=== PATIENT | female | born 1980 | race Caucasian/White ===

== ENCOUNTER 2016-11-10 11:17 | Emergency (ER) | payer BC ==
[~2016-11-10] VITALS: Ht 170.2 cm; Wt 65.9 kg
[~2016-11-10 11:17] MED LIST: BENTYL20 MG PO; DOXYCYCLINE 10100 MG PO; IMITREX50 MG PO; JOLIVETTE0.35 MG PO; LORTAB 5/500 501 TAB PO; MULTIPLE VITAMI1 CAP PO; MULTIPLE VITAMI1 TA5 PO; NORCO 325 MG-51 TAB; NORCO 325 MG-51 TAB PO; PRENATAL1 TA1 PO; PRILOSEC 20MG20 MG PO; PROZAC 20MG20 MG PO; PROZAC40 MG PO; ROXICODONE 55 MG/TAB PO; SEROQUEL; SEROQUEL100 MG PO; VOLTAREN 50MG T50 MG PO; VOLTAREN SR25 MG/TAB PO; ZOFRAN 4MG T4 MG/TAB; ZOVIRAX400 MG PO
[2016-11-10 11:19] VITALS: TEMP 98.3
[2016-11-10 12:25] LABS: ADJUSTED CALCIUM 9.2 mg/dL (8.4-10.2); ALANINE AMINOTRANSFERASE 18 U/L (9-52); ALBUMIN 4.5 gm/dL (3.5-5.0); ALKALINE PHOSPHATASE 55 U/L (50-136); ANION GAP 13 mmol/L (7-16); BILIRUBIN,TOTAL 0.7 mg/dL (0.0-1.0); BLOOD UREA NITROGEN 12 mg/dL (7-17); CALCIUM 9.6 mg/dL (8.4-10.2); CARBON DIOXIDE 23 mmol/L (22-30); CHLORIDE 106 mmol/L (98-107); CREATININE, serum 0.77 mg/dL (0.52-1.25); GLUCOSE 89 mg/dL (74-106); SODIUM 142 mmol/L (137-145); TOTAL PROTEIN 7.5 gm/dL (6.4-8.2)
[2016-11-10 12:26] LABS: C-REACTIVE PROTEIN < 0.5 mg/dL (0.0-0.9)
[2016-11-10 12:39] LABS: BASO # 0.1 (0.0-0.2); BASO % 0.8 % (0.0-2.0); EOS # 0.2 (0.0-0.7); EOS % 2.1 % (0-4.0); GRAN # 4.5 (1.4-6.5); GRAN % 61.3 % (42.2-75.2); HEMATOCRIT 42.6 % (37.0-47.0); HEMOGLOBIN 14.4 g/dl (12.5-16.0); LYMPH # 2.2 (1.2-3.4); LYMPH % 29.9 % (20.0-51.0); MEAN CELL VOLUME 93 fl (80.0-100.0); MEAN CORPUSCULAR HEMOGLOBIN 31 pg (27.0-31.0); MEAN CORPUSCULAR HGB CONC 34 g/dl (33.0-37.0); MONO # 0.4 (0.1-0.6); MONO % 5.6 % (1.7-9.3); PLATELET COUNT 355 K/mm3 (130-400); RED BLOOD COUNT 4.59 M/mm3 (4.10-5.30); REDCELL DISTRIBUTION WIDTH-CV 11.9 % (11.5-14.5); WHITE BLOOD COUNT 7.3 K/mm3 (4.8-10.8)
[2016-11-10] MEDS ORDERED: NORCO 325 MG-51 TAB PO (13:32)
[2016-11-10] MEDS ORDERED: ZOFRAN 4MG T4 MG/TAB PO (13:32)
[2016-11-10 13:43] VITALS: BP 131/87; PULSE 66
== END 2016-11-10 13:44 | disposition home or self-care (01) ==
LOC: COL.ER 11:17
PROVIDERS: Emergency Medicine
DX: G43.809 Other migraine, not intractable, without status migrainosus (principal); K21.9 Gastro-esophageal reflux disease without esophagitis; R20.0 Anesthesia of skin; R20.2 Paresthesia of skin
CPT/HCPCS: J1170; J1885; J2405; J7030

== ENCOUNTER 2017-02-17 13:59 | Day surgery (SDC) | payer BC ==
[~2017-02-17] VITALS: Ht 170.2 cm; Wt 64.7 kg
[~2017-02-17 13:59] MED LIST changes: +ZOFRAN 4MG T4 MG/TAB PO
[2017-02-17 14:18] VITALS: BP 127/95; PULSE 79; TEMP 98.5
[2017-02-17] MEDS ORDERED: CYMBALTA 60MG60 MG PO (14:25)
[2017-02-17 16:34] VITALS: BP 116/77; PULSE 90; TEMP 97.9
[2017-02-17 16:50] VITALS: BP 126/83; PULSE 77
[2017-02-17 17:05] VITALS: BP 122/90; PULSE 73
[2017-02-17 17:21] VITALS: BP 125/84; PULSE 88
== END 2017-02-17 17:15 | disposition home or self-care (01) ==
LOC: SDCO 13:59
DX: K21.9 Gastro-esophageal reflux disease without esophagitis (principal); F41.9 Anxiety disorder, unspecified; E66.9 Obesity, unspecified; F17.210 Nicotine dependence, cigarettes, uncomplicated; R63.4 Abnormal weight loss; R10.13 Epigastric pain; Z80.0 Family history of malignant neoplasm of digestive organs; Z87.19 Personal history of other diseases of the digestive system; Z98.51 Tubal ligation status
CPT/HCPCS: J1200; J2250; J2405; J3010; J7030

== ENCOUNTER → 2017-02-22 | Outpatient (CLI) | payer BC ==
[~2017-02-22] MED LIST changes: +CYMBALTA 60MG60 MG PO
== END ==
LOC: COL.RAD 14:19
DX: R10.9 Unspecified abdominal pain (principal); R50.9 Fever, unspecified

== ENCOUNTER 2017-05-03 09:34 | Emergency (ER) | payer BC ==
[~2017-05-03] VITALS: Ht 170.2 cm; Wt 65.9 kg
[2017-05-03 09:37] VITALS: TEMP 99.4
[2017-05-03] MEDS ORDERED: PHENERGAN 25 TA25 MG PO (11:52)
[2017-05-03] MEDS ORDERED: NORCO 325 MG-51 TAB PO (11:52)
[2017-05-03 12:03] VITALS: BP 132/74; PULSE 75
== END 2017-05-03 12:08 | disposition home or self-care (01) ==
LOC: COL.ER 09:34
DX: G43.909 Migraine, unspecified, not intractable, without status migrainosus (principal); K21.9 Gastro-esophageal reflux disease without esophagitis; Z90.49 Acquired absence of other specified parts of digestive tract; Z90.89 Acquired absence of other organs; Z98.51 Tubal ligation status
CPT/HCPCS: J1170; J1885; J2060; J2405; J2550; J7030